=== PATIENT | male | born 1985 | race Caucasian/White ===

== ENCOUNTER 2021-11-19 09:22 | Outpatient (CLI) | payer BC | END 2021-11-19 09:23 | disposition home or self-care (01) | LOC: RAD 09:22 | PROVIDERS: ATTEND Otolaryngology Plastic Surgery within the Head & Neck | DX: J34.2 Deviated nasal septum (principal) | CPT/HCPCS: 70486 ==

== ENCOUNTER 2021-12-12 06:42 | Day surgery (SDC) | payer BC ==
[2021-12-11 11:52] VITALS: BMI 34.4
[2021-12-12] MEDS ORDERED: Oxymetazoline HCl 0.05% (30 ML BOT) ONE ×2 (07:00→08:38)
[2021-12-12] MEDS ORDERED: fentaNYL Citrate/PF 100 MCG/2 ML SYRINGE ONE ×2 (08:02)
[2021-12-12] MEDS ORDERED: EPINEPHrine 1 MG/ML AMP ONE (08:38)
[2021-12-12] MEDS ORDERED: Lidocaine 1% (PF) 30 ML VIAL ONE (08:38)
[2021-12-12] MEDS ORDERED: Bacitracin Zinc Ointment 30 gm TUBE ONE (08:38)
[2021-12-12] MEDS ORDERED: Midazolam HCl 2 mg/2 ml Vial ONE (08:47)
[2021-12-12] MEDS ORDERED: Dexamethasone 20 MG/5 ML VIAL ONE (09:03)
[2021-12-12] MEDS ORDERED: PROPOFOL 200 MG/20 ML VIAL ONE (09:03)
[2021-12-12] MEDS ORDERED: Rocuronium Bromide 10 MG/ML (10ML VIAL) ONE (09:03)
[2021-12-12] MEDS ORDERED: Ondansetron PF 4 MG/2 ML Vial ONE (09:03)
[2021-12-12] MEDS ORDERED: NEOSTIGMINE 3 MG/3 ML SYR 3 MG/3 ML SYRINGE ONE (09:03)
[2021-12-12] MEDS ORDERED: Glycopyrrolate 0.2 MG/ML 5 ML SYRINGE ONE (09:03)
[2021-12-12] MEDS ORDERED: Fentanyl 100 MCG/2 ML VIAL ONE (11:53)
== END 2021-12-12 12:50 | disposition home or self-care (01) ==
LOC: SDC 06:42
PROVIDERS: ATTEND Otolaryngology Plastic Surgery within the Head & Neck
PROC: 095L0ZZ Destruction of Nasal Turbinate, Open Approach (ICD-10-PCS; principal; 2021-12-12)
PROC: 09TV8ZZ Resection of Left Ethmoid Sinus, Via Natural or Artificial Opening Endoscopic (ICD-10-PCS; principal; 2021-12-12)
PROC: 09SM0ZZ Reposition Nasal Septum, Open Approach (ICD-10-PCS; principal; 2021-12-12)
PROC: 099Q8ZZ Drainage of Right Maxillary Sinus, Via Natural or Artificial Opening Endoscopic (ICD-10-PCS; principal; 2021-12-12)
PROC: 099R8ZZ Drainage of Left Maxillary Sinus, Via Natural or Artificial Opening Endoscopic (ICD-10-PCS; principal; 2021-12-12)
PROC: 09TU8ZZ Resection of Right Ethmoid Sinus, Via Natural or Artificial Opening Endoscopic (ICD-10-PCS; principal; 2021-12-12)
DX: J32.9 Chronic sinusitis, unspecified (principal); J34.2 Deviated nasal septum; J34.3 Hypertrophy of nasal turbinates; J34.89 Other specified disorders of nose and nasal sinuses; J30.9 Allergic rhinitis, unspecified; I10 Essential (primary) hypertension; E78.5 Hyperlipidemia, unspecified; G47.33 Obstructive sleep apnea (adult) (pediatric); E66.9 Obesity, unspecified; Z68.34 Body mass index [BMI] 34.0-34.9, adult; Z86.16 Personal history of COVID-19; Z87.891 Personal history of nicotine dependence; Z79.899 Other long term (current) drug therapy
CPT/HCPCS: J0171; J1100; J2001; J2250; J2405; J2704; J3010